=== PATIENT | female | born 1955 | race African-American/Black ===

== ENCOUNTER 2021-04-10 12:32 | Emergency (ER) | payer MEDICARE, MEDICAID ==
[~2021-04-10] VITALS: Ht 167.6 cm; Wt 81.7 kg
[2021-04-10 13:30] LABS: BASOPHILS % 0.8 % (0.0-2.0); EOSINOPHILS % 4.1 % (0.0-5.0); HEMATOCRIT. 39.9 % (36.0-48.0); HEMOGLOBIN. 12.6 g/dL (12.0-16.0); LYMPHOCYTES % 33.1 % (20.0-50.0); MEAN CORPUSCULAR HEMOGLOBIN 26.5 pg (28.0-32.0); MEAN CORPUSCULAR VOLUME 83.9 fL (81.0-99.0); MEAN PLATELET VOLUME 8.3 fl (7.4-10.4); MONOCYTES % 6.3 % (2.0-8.0); NEUTROPHILS % 55.7 % (40.0-76.0); PLATELET 349 x1000/uL (130-400); RED BLOOD CELL COUNT 4.75 mill/uL (4.2-5.4); RED CELL DISTRIBUTION WIDTH 15.8 % (11.6-14.6)
[2021-04-10 13:39] LABS: CHLORIDE 107 mEq/L (98-107)
[2021-04-10 13:43] LABS: ETHANOL BLOOD < 10 mg/dL
[2021-04-10] MEDS ORDERED: ASPIRIN 325MG TABLET PO ONE (14:00)
[2021-04-10 18:15] VITALS: BP 114/78
[2021-04-10] MEDS ORDERED: ATORVASTATIN CALCIUM 20MG TABLET PO SCH (21:00)
== END 2021-04-10 17:46 | disposition left against medical advice (07) ==
LOC: ER 12:32
DX: R41.82 Altered mental status, unspecified (principal); I10 Essential (primary) hypertension; Z86.59 Personal history of other mental and behavioral disorders
CPT/HCPCS: 36415; 71045; 80053; 80307; 80320; 80329; 82962; 83605; 84443; 84484; 85025; 93005; 99285; G0480